=== PATIENT | male | born 1985 | race Caucasian/White ===

== ENCOUNTER 2017-02-01 10:07 | Day surgery (SDC) | payer BC, OTHER ==
--- NOTE | 2017-01-31 13:00 | History and Physical ---
History & Physical Date Jan 31, 2017. Chief Complaint Right knee pain History of Present Illness The patient is a 32 year old male with complaints of right knee pain x 4 weeks. He is active at work and home without specific injury. He has tried RICE and NSAIDs without relief. MRI confirms complex medial meniscus tear Additional History Hepatic Disease: No Endocrine Disorder: No Kidney Disease: No Hypertension: No Heart Disease: No Bleeding Tendencies: No Infectious Diseases: No Physical Examination Skin: warm/dry Eyes: normal inspection, EOMI ENT: normal ENT inspection Head: normocephalic Neck: supple, no adenopathy Respiratory/Chest: lungs clear Cardiovascular: regular rate, rhythm Abdomen / GI: normal bowel sounds, non tender Extremities: + pertinent finding (Right knee with mild effusion, medial joint line pain, + Orlando's exam) Addiitonal Comments: MRI demonstrates complex medial meniscus tear Diagnosis Right knee medial meniscus tear Plan of Treatment Right knee arthroscopy, partial medial meniscectomy
[2017-01-31 14:41] VITALS: BMI 28.0
[~2017-02-01] VITALS: Ht 188 cm; Wt 100.0 kg
[~2017-02-01 10:07] MED LIST: IBUP-1050 PO; LACTATED RINGER'S 1000ML 1,000 ML IV SCH
[2017-02-01 10:39] VITALS: BP 150/76; PULSE 45; TEMP 36.9; O2SAT 98; Ht 188 cm; Wt 100.0 kg
[2017-02-01] MEDS ORDERED: PROPOFOL IV EMULSION 10 MG/ML 20 ML VIAL IV ONE ×2 (11:53→13:01)
[2017-02-01] MEDS ORDERED: ONDANSETRON INJ 2 MG/ML 2 ML VIAL ONE (11:53)
[2017-02-01] MEDS ORDERED: DEXAMETHASONE SOD INJ 4 MG/ML VIAL ONE (11:53)
[2017-02-01] MEDS ORDERED: MIDAZOLAM HCL 1 MG/ML 2ML VIAL ONE (11:53)
[2017-02-01] MEDS ORDERED: LIDOCAINE HCL 2% 2 ML VIAL (20MG/ML) ONE (11:53)
[2017-02-01] MEDS ORDERED: FENTANYL CITRATE INJ 50 MCG/1 ML 2 ML VIAL ONE ×2 (11:54→13:21)
--- NOTE | 2017-02-01 11:55 | History & Physical Bridge Note ---
H&P Re-Evaluation Bridge Note: I have examined the patient, reviewed the History & Physical and in the interval since the performance of the History & Physical I have noted the following changes of clinical significance: No changes noted
[2017-02-01] MEDS ORDERED: ONDANSETRON INJ 2 MG/ML 2 ML VIAL IV PRN (12:00)
[2017-02-01] MEDS ORDERED: FENTANYL CITRATE INJ 50 MCG/1 ML 2 ML VIAL IV PRN (12:00)
[2017-02-01] MEDS ORDERED: ATROPINE SULFATE 0.1 MG/ML 5ML SYR IV PRN (12:00)
[2017-02-01] MEDS ORDERED: EpHEDrine SULFATE INJ 50 MG/ML AMP IV PRN (12:00)
[2017-02-01] MEDS ORDERED: BUPIVACAINE/EPINEPHRINE 0.5% MPF 1:200,000 10 ML VIAL ONE ×2 (12:22→12:41)
[2017-02-01] MEDS ORDERED: SODIUM CHLORIDE 0.9% 1000ML 1,000 ML IV SCH (12:49)
[2017-02-01] MEDS ORDERED: HYDR-5688 PO (12:51)
--- NOTE | 2017-02-01 12:54 | Discharge Instructions ---
Discharge Instructions Date of Service Feb 01, 2017. Visit Reason for Visit: Right Knee Medial Meniscus Tear Discharge Discharge Diagnosis / Problem: Right knee medial meniscus tear Discharge Goals Goal(s): Decrease discomfort, Improve function Activity Recommendations Activity Limitations: as noted below Weightbearing Status: Right weightbearing (as tolerated) Anesthesia . Post Anesthesia Instructions: If you have had General Anesthesia or IV Sedation: * Do not drive today. * Resume driving when surgeon permits. * Do not make important decisions or sign legal documents today. * Call surgeon for: 1. Temperature elevations greater than 101 degrees F. 2. Uncontrollable pain. 3. Excessive bleeding. 4. Persistent nausea and vomiting. 5. Medication intolerance (nausea, vomiting or rash). * For nausea and vomiting use only clear liquids such as: tea, soda, bouillon until nausea subsides, then gradually increase diet as tolerated. * If you have any concerns or questions, call your surgeon's office. If physician is unavailable and it is an emergency, call 911 or go to the nearest emergency room. . Instructions / Follow-Up Instructions / Follow-Up ACTIVITY RECOMMENDATIONS: * You may walk on the leg with or without crutches as comfort permits. * Bending of the knee should start at once. * Do not shower for 48 hours following surgery. SPECIAL CARE INSTRUCTIONS: * You may cleanse the skin adjacent to the small wounds with soap and water at the time of the first dressing change. * The application of an ice bag to the front and sides of the knee will decrease swelling and discomfort for the first 48 hours. * The small incisions may be sore and develop bruising. This bruising does not require any special care. SPECIAL PRECAUTIONS: * If you experience unusual pain unrelieved by prescriptions, temperature elevation (100 degrees F. or above) or progressive swelling or bleeding, you should contact our office at for further evaluation. * You may have been prescribed pain medication. If you experience nausea and/or fine skin rash, discontinue this medication and contact our office at for an alternate medication. DRESSING: * Dressing should be comfortable and absorb any leakage of fluid and/or blood. * The dressing may become moist or bloodstained. * Dressing may be removed 48 hours after surgery and bandaids placed over the small surgical incisions. If can be removed sooner if it becomes very soiled or loose. * Bandaids may be used over next several days as needed and can be discontinued when there is not further drainage from the wounds. FOLLOW UP VISIT: If appointment is not already scheduled: Please call [facility] to make a follow-up appointment for your surgery at . Diet Recommendations Recommended Home Diet: resume previous diet Pending Studies Studies pending at discharge: no Medical Emergencies . Who to Call and When: Medical Emergencies: If at any time you feel your situation is an emergency, please call 911 immediately. . Non-Emergent Contact Non-Emergency issues call your: Surgeon Call Non-Emergent contact if: temperature is above 101.5, your pain is not controlled, wound has increased drainage, wound has increased redness . . "Provider Documentation" section prepared by Christiano Caro PA-C. . [place] Drug Monitoring Program Search Results: patient reviewed within database, no issues identified
[2017-02-01] MEDS ORDERED: KETOROLAC TROMETHAMINE 30 MG/ML VIAL ONE (12:56)
[2017-02-01] MEDS ORDERED: EpHEDrine SULFATE 50MG/5ML SYR ONE (12:57)
[2017-02-01] MEDS ORDERED: GLYCOPYRROLATE INJ 0.2 MG/ML VIAL ONE (12:57)
[2017-02-01] MEDS ORDERED: HYDROCODONE/ACETAMOPHEN 5/325MG TAB PO PRN (13:00)
[2017-02-01] MEDS ORDERED: OXYCODONE/ACETAMINOPHEN 5-325 TAB PO PRN (13:00)
--- NOTE | 2017-02-01 13:28 | [facility] Operative Report ---
Operative Report Operative Date Feb 01, 2017. Pre-Operative Diagnosis Right knee medial meniscus tear Post-Operative Diagnosis Right knee medial meniscus tear Procedure(s) Performed Right Knee Arthroscopy with Partial Medial Menisectomy following the induction of adequate general anesthesia the patient's right leg was prepped and draped in usual sterile manner. The was exsanguinated with elevation to 300 mmHg. An inflow portal was used for insertion of the arthroscope. Suprapatellar pouch identified in the was within normal limits as well as the patellofemoral joint. He is much extension and abduction and a flap tear was a displaced flap fragment in the foot. Medial portal was established and accommodation basket forceps and a 45 size blade the meniscal remnant was removed. The shaver was used to further trim up the posterior horn. The femoral condyle and tibial plateau within normal history. Anterior and posterior cruciate ligaments were identified and probed and intact. There is retrocecal for position with lateral compartment was intact. There were no additional insult, positive for nonspecific sutures each incision was injected with 10 mL of half percent Marcaine with epinephrine. Sterile dressing of Adaptic 4 x 4's sterile web roll and double length Ranjith wrap was applied Surgeon Adela Clinical Associate Surgeon(s) None Estimated Blood Loss 10cc Findings Flap tear medial meniscus right knee Specimens None per surgeon Disposition Recovery Room / PACU I attest to the content of the Intraoperative Record and any orders documented therein. Any exceptions are noted below.
--- NOTE | 2017-02-01 13:32 | Anesthesiology Progress Note ---
Anesthesia Post Op Note Date & Time Feb 01, 2017 at 13:32 Vital Signs Vital Signs Past 12 Hours Date Time Temp Pulse Resp B/P (MAP) Pulse Ox O2 Delivery O2 Flow Rate FiO2 02/01/17 13:20 58 14 145/77 98 Mask 10 02/01/17 13:12 36.2 67 16 165/88 98 Mask 10 02/01/17 10:39 36.9 45 18 150/76 (100) 98 Room Air Notes Mental Status: alert / awake / arousable, participated in evaluation Pt Amnestic to Procedure: Yes Nausea / Vomiting: adequately controlled Pain: adequately controlled Airway Patency, RR, SpO2: stable & adequate BP & HR: stable & adequate Hydration State: stable & adequate Anesthetic Complications: no major complications apparent
[2017-02-01 14:06] VITALS: BP 126/57; PULSE 52; TEMP 36.3; O2SAT 95
[2017-02-01 14:30] VITALS: BP 125/50; PULSE 53; TEMP 35.9; O2SAT 96
[2017-02-01 14:50] VITALS: BP 140/60; PULSE 50; TEMP 36.5; O2SAT 96
[2017-02-01 15:15] VITALS: BP 140/60; PULSE 57; TEMP 36.2; O2SAT 97
== END 2017-02-01 15:35 | disposition home or self-care (01) ==
LOC: C.ACU 10:07
DX: S83.241A Other tear of medial meniscus, current injury, right knee, initial encounter (principal); X58.XXXA Exposure to other specified factors, initial encounter